=== PATIENT | female | born 1975 | race Caucasian/White ===

== ENCOUNTER 2018-07-05 13:44 | Emergency (ER) | payer BC ==
[2018-07-05] MEDS: KETOROLAC 60 MG INJ IM (16:15)
== END 2018-07-05 17:12 | disposition home or self-care (01) ==
LOC: FTE 13:44
DX: S80.02XA Contusion of left knee, initial encounter (principal); R03.0 Elevated blood-pressure reading, without diagnosis of hypertension; S80.01XA Contusion of right knee, initial encounter; M79.605 Pain in left leg; W01.0XXA Fall on same level from slipping, tripping and stumbling without subsequent striking against object, initial encounter; Y92.9 Unspecified place or not applicable
CPT/HCPCS: 81025; 93005; 96372; 99284-25